=== PATIENT | female | born 1975 | race Two or more races ===

== ENCOUNTER 2018-02-04 19:21 | Emergency (ER) | payer OTHER ==
[~2018-02-04] VITALS: Ht 152.4 cm; Wt 65.8 kg
[2018-02-04] MEDS ORDERED: DIAZEPAM INJ 5 MG/ML 2 ML IM ONE (19:45)
[2018-02-04] MEDS ORDERED: LEVOTHYROXINE50 MCG PO (20:19)
[2018-02-04] MEDS ORDERED: METFORMIN HCL500 MG PO (20:19)
[2018-02-04] MEDS ORDERED: METOPROLOL SUCC25 MG (20:19)
[2018-02-04] MEDS ORDERED: SIMVASTATIN40 MG PO (20:19)
[2018-02-04 21:11] VITALS: BP 115/72
== END 2018-02-04 20:41 | disposition home or self-care (01) ==
LOC: FSED 19:21
DX: M54.2 Cervicalgia (principal); M54.12 Radiculopathy, cervical region; M79.622 Pain in left upper arm; M25.512 Pain in left shoulder; E78.5 Hyperlipidemia, unspecified; Z85.3 Personal history of malignant neoplasm of breast
CPT/HCPCS: 71046; 72040; 96372; 99282; J3360

== ENCOUNTER 2018-04-04 14:02 | Emergency (ER) | payer OTHER ==
[~2018-04-04] VITALS: Ht 152.4 cm; Wt 65.8 kg
[~2018-04-04 14:02] MED LIST: LEVOTHYROXINE50 MCG PO; METFORMIN HCL500 MG PO; METOPROLOL SUCC25 MG; SIMVASTATIN40 MG PO
--- OUTSIDE RECORDS SUMMARY | 2018-04-04 14:04 | XMS REPORT ---
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 Allergies, Adverse Reactions, Alerts This patient has no known allergies or adverse reactions. Medications This patient has no known medications. Encounters Start Date/Time End Date/Time Encounter Type Admission Type Attending [facility] Care Department Encounter ID 2018-05-05 00:00:00 2018-05-05 00:00:00 Outpatient [facility] [id number] 2018-01-13 00:00:00 2018-01-13 00:00:00 Outpatient [facility] [id number] 2017-10-21 08:59:43 2017-10-21 08:59:43 Outpatient [facility] [id number] 2017-08-26 08:02:42 2017-08-26 08:02:42 Outpatient [facility] [id number] 2017-07-29 08:46:35 2017-07-29 08:46:[address] [facility] [id number] 2017-07-21 11:36:52 2017-07-21 11:36:52 Outpatient [facility] [id number] 2017-07-16 07:59:35 2017-07-16 07:59:35 Outpatient [facility] [id number]
--- OUTSIDE RECORDS SUMMARY | 2018-04-04 14:04 | XMS REPORT | Continuity of Care Document ---
Author Author [facility] Organization [facility] Address [address] [place] [address] Phone Unavailable Care Team Providers Care Dairy Manager Name Role Phone NO, PCP PCP Unavailable Advance Directives No advance directive information available. Problems No problem information available. Medications Current Home Medications Medication Dose Units Route Directions Days Qty Instructions Start Date Levothyroxine Sodium 50 Mcg Tablet 50 Mcg Oral Daily 30 Tab Levothyroxine Sodium 50 Mcg Tablet 50 Mcg Oral Daily 30 Tab Metformin Hcl 500 Mg Tablet 500 Mg Oral Twice A Day 60 Tab Metoprolol Succinate 25 Mg Tab.er.24h Simvastatin 40 Mg Tablet 40 Mg Oral Today At 9:00PM 30 Tab Social History No social history information available. Hospital Discharge Instructions No hospital discharge instruction information available. Plan of Care Discharge Date 02/04/18 8:41pm Disposition HOME, SELF-CARE Condition at Discharge Stable Instructions/Education Provided Cervical Radiculopathy Forms Provided Work/School Excuse Prescriptions See Medication Section Additional Instructions/Education Discussed with patient in detail the working diagnosis of cervical radiculopathy with pain symptoms down arm. Recommend Tramadol and Valium as needed for pain/muscle spasm. FOLLOW UP with MD for further evaluation in 2-4 days if symptoms persist to evaluate for herniated disk with MRI. Precautions given. Functional Status No functional status information available. Allergies, Adverse Reactions, Alerts Allergen Type Severity Reaction Status Last Updated Ibuprofen Allergy Intermediate rash Active 02/04/18 Vancomycin Allergy Intermediate rash Active 02/04/18 Immunizations No immunization information available. Vital Signs Acute Vital Signs Vital Response Date/Time Pulse Pulse Rate (adult) 75 bpm (60 - 90) 02/04/2018 9:11pm Respiratory Rate 16 bpm (12 - 24) 02/04/2018 9:11pm Blood Pressure 115/72 mm Hg 02/04/2018 9:11pm Height 5 ft 0 in 02/04/2018 7:21pm Weight 145 lb 02/04/2018 7:21pm Body Mass Index 28.3 kg/m^2 02/04/2018 7:21pm Results No relevant diagnostic test, laboratory data and/or discharge summary information available. Procedures No procedure information available. Encounters Encounter Location Arrival/Admit Date Discharge/Depart Date Attending Provider Departed Emergency Room [facility] 02/04/18 7:21pm 8:41pm JOSE L DIAZ MD
[2018-04-04] MEDS ORDERED: PLAVIX75 MG PO (14:20)
== END 2018-04-04 17:58 | disposition home or self-care (01) ==
LOC: FSED 14:02
DX: R07.89 Other chest pain (principal); R06.09 Other forms of dyspnea; E11.9 Type 2 diabetes mellitus without complications; E78.5 Hyperlipidemia, unspecified
CPT/HCPCS: 71260; 80053; 81003; 82553; 83880; 84484; 85025; 85610; 93005; 99284